=== PATIENT | male | born 1935 | race Caucasian/White ===

== ENCOUNTER 2018-01-27 16:48 | Emergency (ER) | payer MEDICARE ==
--- NOTE | 2018-01-27 17:50 | EDM.PDOC ---
ED HPI GENERAL MEDICAL PROBLEM - General Chief Complaint: Neuro Symptoms/Deficits Stated Complaint: POSSIBLE STROKE Time Seen by Provider: 01/27/18 17:10 Source of Information: Reports: Patient, Family History Limitations: Reports: No Limitations - History of Present Illness INITIAL COMMENTS - FREE TEXT/NARRATIVE: 82-year-old male was writing a letter about 5 hours ago when he started having difficulty with his right hand and then when he tried to stand he thought his right leg was somewhat numb and lacked coordination. Symptoms lasted 1 to 2 hours, they are completely gone now but he told his family and they insisted he be seen. No headache, visual disturbance, shortness of breath, chest pain, palpitations or other concerns. He is only on a blood pressure medication and an aspirin daily. He had left hip repair 3 months ago. He did not want to come to the hospital, is willing to do a head scan but does not want transfer or any further workup unless necessary. Onset: Gradual (Over the past 5 hours) Severity: Mild Associated Symptoms: Reports: No Other Symptoms Denies Pain Score (Numeric/FACES): 0 - Related Data Allergies Allergy/AdvReac Type Severity Reaction Status Date / Time Penicillins Allergy Cannot Verified 01/28/18 11:30 Remember Home Meds: Home Meds Aspirin 325 mg PO DAILY 01/27/18 [History] Triamterene/Hydrochlorothiazid [Triamterene-HCTZ 37.5-25 MG] 1 tab PO DAILY 10/04 [History] Past Medical History Cardiovascular History: Reports: Hypertension Musculoskeletal History: Reports: Fracture Other Musculoskeletal History: fx nose Psychiatric History: Reports: Depression Dermatologic History: Reports: Other (See Below) Other Dermatologic History: froze hands - Infectious Disease History Infectious Disease History: Reports: Chicken Pox, Measles, Mumps - Past Surgical History HEENT Surgical History: Reports: Tonsillectomy GI Surgical History: Reports: Hernia, Inguinal Musculoskeletal Surgical History: Reports: Hip Replacement Social & Family History - Tobacco Use Smoking Status *Q: Never Smoker Second Hand Smoke Exposure: No - Caffeine Use Caffeine Use: Reports: Coffee, Soda, Tea - Recreational Drug Use Recreational Drug Use: No ED ROS GENERAL - Review of Systems Review Of Systems: See Below Constitutional: Denies: Fever, Chills, Malaise HEENT: Denies: Vision Change Respiratory: Denies: Shortness of Breath, Cough Cardiovascular: Denies: Chest Pain GI/Abdominal: Denies: Abdominal Pain, Nausea, Vomiting : Reports: No Symptoms Musculoskeletal: Reports: Other (Still uses a cane to support the left hip) Neurological: Reports: Numbness (Had some numbness in the right leg earlier, resolved). Denies: Headache, Syncope ED EXAM, NEURO - Physical Exam Exam: See Below Exam Limited By: No Limitations General Appearance: Alert, No Apparent Distress Eye Exam: Bilateral Eye: Normal Inspection Head Exam: Atraumatic Neck: Normal Inspection. No: Carotid Bruit Respiratory/Chest: No Respiratory Distress, Lungs Clear Cardiovascular: Regular Rate, Rhythm GI/Abdominal: Soft, Non-Tender Neurological: Alert, CN II-XII Intact, No Motor/Sensory Deficits, Oriented x 3 Psychiatric: Normal Affect, Normal Mood Skin Exam: Warm, Dry Course - Vital Signs Last Recorded V/S: Last Vital Signs Temp 94.2 F L 01/27/18 17:10 Pulse 78 01/27/18 17:10 Resp 16 01/27/18 17:10 BP 181/112 H 01/27/18 17:10 Pulse Ox 95 01/27/18 17:10 - Re-Assessments/Exams Free Text/Narrative Re-Assessment/Exam: 01/27/18 17:50 Patient was willing to do a head CT for reassurance. 01/27/18 18:[address] showed some atrophy but no acute findings. This was relayed to the patient. He'll continue on his full dose aspirin, and return for further workup if symptoms recur. He understands that additional workup could be done at this time but he wants none done unless the symptoms recur. Blood pressure normalized by discharge, was 144/78 Departure - Departure Time of Disposition: 18:47 Disposition: Home, Self-Care 01 Condition: Good Clinical Impression: TIA (transient ischemic attack) Qualifiers: Transient cerebral ischemia type: unspecified Qualified Code(s): G45.9 - Transient cerebral ischemic attack, unspecified - Discharge Information Instructions: Transient Ischemic Attack, [id number] Referrals: PCP,None [Primary Care Provider] - Forms: ED Department Discharge Care Plan Goals: Continue your current medications including your full dose aspirin daily. Return any time if symptoms are recurring or you develop other concerns.
== END 2018-01-27 18:46 | disposition home or self-care (01) ==
LOC: JP.ED 16:48
DX: G45.9 Transient cerebral ischemic attack, unspecified (principal); I10 Essential (primary) hypertension; Z88.0 Allergy status to penicillin; Z79.82 Long term (current) use of aspirin
CPT/HCPCS: 70450; 99284-25

== ENCOUNTER 2018-01-28 11:07 | Emergency (ER) | payer MEDICARE ==
--- NOTE | 2018-01-28 12:37 | EDM.PDOC ---
ED HPI GENERAL MEDICAL PROBLEM - General Chief Complaint: Neuro Symptoms/Deficits Stated Complaint: NOT GETTING BETTER Time Seen by Provider: 01/28/18 12:37 Source of Information: Reports: Patient, Family History Limitations: Reports: No Limitations - History of Present Illness INITIAL COMMENTS - FREE TEXT/NARRATIVE: pt was seen yesterday and had a neg head scan. he had most of his symptoms clear yesterday. Today at 3 am he had recurrent weakness in the rt leg and difficulty cordinating his rt hand, He did nort have a headache. Onset: Other ( symptoms reoccurred today. ) Duration: Hour(s): Location: Reports: Upper Extremity, Right, Lower Extremity, Right Associated Symptoms: Reports: No Other Symptoms - Related Data Allergies Allergy/AdvReac Type Severity Reaction Status Date / Time Penicillins Allergy Cannot Verified 01/28/18 11:30 Remember Home Meds: Home Meds Aspirin 325 mg PO DAILY 01/27/18 [History] Triamterene/Hydrochlorothiazid [Triamterene-HCTZ 37.5-25 MG] 1 tab PO DAILY 10/04 [History] Past Medical History Cardiovascular History: Reports: Hypertension Musculoskeletal History: Reports: Fracture Other Musculoskeletal History: fx nose Psychiatric History: Reports: Depression Dermatologic History: Reports: Other (See Below) Other Dermatologic History: froze hands - Infectious Disease History Infectious Disease History: Reports: Chicken Pox, Measles, Mumps - Past Surgical History HEENT Surgical History: Reports: Tonsillectomy GI Surgical History: Reports: Hernia, Inguinal Musculoskeletal Surgical History: Reports: Hip Replacement Other Musculoskeletal Surgeries/Procedures:: L HIP REPLACEMENT Social & Family History - Tobacco Use Smoking Status *Q: Unknown Ever Smoked Second Hand Smoke Exposure: No - Caffeine Use Caffeine Use: Reports: Coffee, Soda, Tea - Recreational Drug Use Recreational Drug Use: No ED ROS GENERAL - Review of Systems Review Of Systems: See Below Constitutional: Reports: No Symptoms HEENT: Reports: No Symptoms Respiratory: Reports: No Symptoms Cardiovascular: Reports: No Symptoms, Other ( pt has no history of atrial fib. ) Endocrine: Reports: No Symptoms GI/Abdominal: Reports: No Symptoms : Reports: No Symptoms Skin: Reports: Other ( slight weaknes in the rt leg.) ED EXAM, NEURO - Physical Exam Exam: See Below Text/Narrative:: pt is alert and oriented pt who is able to give a good history. Exam Limited By: No Limitations General Appearance: Alert, No Apparent Distress, Other (pt was dragging his rt leg earlier today. pupils are equal and reactive. ) Ears: Normal TMs Nose: Normal Inspection Throat/Mouth: Normal Inspection Head Exam: Atraumatic Neck: Normal Inspection Respiratory/Chest: No Respiratory Distress Cardiovascular: Regular Rate, Rhythm GI/Abdominal: Soft, Non-Tender (Male) Exam: Deferred Rectal (Males) Exam: Deferred Neurological: Alert, Oriented x 3 Back Exam: Normal Inspection Extremities: Other ( slight weakness in the rt leg. ) Course - Vital Signs Last Recorded V/S: Last Vital Signs Temp 35.8 C 01/28/18 16:23 Pulse 67 01/28/18 16:23 Resp 15 01/28/18 16:23 BP 131/99 H 01/28/18 16:23 Pulse Ox 94 L 01/28/18 16:23 - Orders/Labs/Meds Orders: Active Orders 24 hr Category Date Time Status EKG Documentation Completion [RC] ASDIRECTED Care 01/28/18 12:39 Active EKG Documentation Completion [RC] ASDIRECTED Care 01/28/18 14:13 Inactive Ang Head wo Cont [MR] Stat Exams 01/28/18 12:36 Ordered Ang Neck w wo Cont [MR] Stat Exams 01/28/18 12:36 Ordered Brain wo Cont [MR] Stat Exams 01/28/18 12:36 Ordered UA W/MICROSCOPIC [URIN] Urgent Lab 01/28/18 12:40 Ordered Sodium Chloride 0.9% [Normal Saline] 1,000 ml Med 01/28/18 12:45 Active IV ASDIRECTED Sodium Chloride 0.9% [Saline Flush] Med 01/28/18 12:38 Active 10 ml FLUSH ASDIRECTED PRN Saline Lock Insert [OM.PC] Routine Oth 01/28/18 12:38 Ordered EKG 12 Lead [EK] Routine Ther 01/28/18 12:39 Ordered EKG 12 Lead [EK] Routine Ther 01/28/18 14:13 Stop Req Medication Orders Sodium Chloride (Normal Saline) 1,000 mls @ 100 mls/hr IV ASDIRECTED ARTURO Last Admin: 01/28/18 14:29 Dose: 100 mls/hr Sodium Chloride (Saline Flush) 10 ml FLUSH ASDIRECTED PRN PRN Reason: Keep Vein Open Labs: Laboratory Tests 01/28/18 01/28/18 01/28/18 Range/Units 12:40 12:40 12:40 WBC 6.3 (4.5-11.0) K/uL RBC 4.67 (4.30-5.90) M/uL Hgb 15.1 H (12.0-15.0) g/dL Hct 44.5 (40.0-54.0) % MCV 95 (80-98) fL MCH 32 H (27-31) pg MCHC 34 (32-36) % Plt Count 185 (150-400) K/uL Neut % (Auto) 57 (36-66) % Lymph % (Auto) 28 (24-44) % [place] % (Auto) 11 H (2-6) % Eos % (Auto) 4 (2-4) % Baso % (Auto) 1 (0-1) % Sodium 144 (140-148) mmol/L Potassium 3.9 (3.6-5.2) mmol/L Chloride 104 (100-108) mmol/L Carbon Dioxide 32 (21-32) mmol/L Anion Gap 8.3 (5.0-14.0) mmol/L BUN 18 (7-18) mg/dL Creatinine 0.9 (0.8-1.3) mg/dL Est Cr Clr Drug Dosing 65.52 mL/min Estimated GFR (MDRD) > 60 (>60) Glucose 75 (74-106) mg/dL Calcium 8.9 (8.5-10.1) mg/dL Total Bilirubin 0.6 (0.2-1.0) mg/dL AST 17 (15-37) U/L ALT 20 (12-78) U/L Alkaline Phosphatase 58 (46-116) U/L Total Protein 6.9 (6.4-8.2) g/dL Albumin 3.9 (3.4-5.0) g/dL Globulin 3.0 (2.3-3.5) g/dL Albumin/Globulin Ratio 1.3 (1.2-2.2) Urine Color Yellow Urine Appearance Clear Urine pH 8.0 (4.5-8.0) Ur Specific [place] 1.010 (1.008-1.030) Urine Protein Negative (NEGATIVE) mg/dL Urine Glucose (UA) Normal (NEGATIVE) mg/dL Urine Ketones Negative (NEGATIVE) mg/dL Urine Occult Blood Negative (NEGATIVE) Urine Nitrite Negative (NEGAITVE) Urine Bilirubin Negative (NEGATIVE) Urine Urobilinogen Normal (NORMAL) mg/dL Ur Leukocyte Esterase Negative (NEGATIVE) Urine RBC 0-5 (0-5) Urine WBC 0-5 (0-5) Ur Epithelial Cells Not seen Amorphous Sediment Not seen Urine Bacteria Not seen Urine Mucus Not seen Meds: Medications Generic Name Dose Route Start Last Admin Trade Name Freq PRN Reason Stop Dose Admin Sodium Chloride 1,000 mls @ 100 mls/hr 01/28/18 12:45 01/28/18 14:29 Normal Saline IV 100 mls/hr ASDIRECTED ARTURO Administration Sodium Chloride 10 ml 01/28/18 12:38 Saline Flush FLUSH ASDIRECTED PRN Keep Vein Open Discontinued Medications Generic Name Dose Route Start Last Admin Trade Name Freq PRN Reason Stop Dose Admin Aspirin 325 mg 01/28/18 14:58 01/28/18 15:39 Ecotrin PO 01/28/18 14:59 325 mg ONETIME ONE Administration Atorvastatin Calcium 40 mg 01/28/18 14:57 01/28/18 15:39 Lipitor PO 01/28/18 14:58 40 mg ONETIME ONE Administration Gadoteridol 20 ml 01/28/18 14:15 01/28/18 14:30 Prohance IV 01/28/18 14:30 20 ml . DIRECTED [facility] Administration - Re-Assessments/Exams Free Text/Narrative Re-Assessment/Exam: 01/28/18 15:17 pt had a normal ekg. His labs looked good. He had a MRI of the brain and a MRA of th head and neck. The vessels looked open. He has a small lucunar infarct. He was offer a ftransfer to [place] to consult with a neurologist and he did not want to go. He would not be a canidate for a cerebral angiogram with a normal MRA of the head and neck. Departure - Departure Time of Disposition: 16:46 Disposition: Home, Self-Care 01 Condition: Fair Clinical Impression: Cerebral infarct - Discharge Information Referrals: Morris Mills, [employer] [Primary Care Provider] - Forms: ED Department Discharge Care Plan Goals: appt with Morris Johnson Wed or wednesday, lipitor 40mg daily asa 81 mg daily, rtc if problems. recheck bp if still running on the high side may need to be medicated . __MRI vascular studies were clear--small lucncar infarct - My Orders Last 24 Hours: My Active Orders 01/28/18 12:36 Ang Head wo Cont [MR] Stat Ang Neck w wo Cont [MR] Stat Brain wo Cont [MR] Stat 01/28/18 12:38 Sodium Chloride 0.9% [Saline Flush] 10 ml FLUSH ASDIRECTED PRN Saline Lock Insert [OM.PC] Routine 01/28/18 12:39 EKG Documentation Completion [RC] ASDIRECTED EKG 12 Lead [EK] Routine 01/28/18 12:40 UA W/MICROSCOPIC [URIN] Urgent 01/28/18 12:45 Sodium Chloride 0.9% [Normal Saline] 1,000 ml IV ASDIRECTED 01/28/18 14:13 EKG Documentation Completion [RC] ASDIRECTED EKG 12 Lead [EK] Routine - Assessment/Plan Last 24 Hours: My Active Orders 01/28/18 12:36 Ang Head wo Cont [MR] Stat Ang Neck w wo Cont [MR] Stat Brain wo Cont [MR] Stat 01/28/18 12:38 Sodium Chloride 0.9% [Saline Flush] 10 ml FLUSH ASDIRECTED PRN Saline Lock Insert [OM.PC] Routine 01/28/18 12:39 EKG Documentation Completion [RC] ASDIRECTED EKG 12 Lead [EK] Routine 01/28/18 12:40 UA W/MICROSCOPIC [URIN] Urgent 01/28/18 12:45 Sodium Chloride 0.9% [Normal Saline] 1,000 ml IV ASDIRECTED 01/28/18 14:13 EKG Documentation Completion [RC] ASDIRECTED EKG 12 Lead [EK] Routine
[2018-01-28] MEDS ORDERED: Sodium Chloride 0.9% 10 ML Syringe FLUSH PRN (12:38)
[2018-01-28] MEDS ORDERED: Sodium Chloride 0.9% 1,000 ML IV SCH (12:45)
[2018-01-28] MEDS ORDERED: Gadoteridol 279.3 MG/ML 20 ML SDV IV SCH (14:15)
[2018-01-28] MEDS ORDERED: atorvaSTATin 20 MG Tab PO ONE (14:57)
[2018-01-28] MEDS ORDERED: Aspirin 325 MG Tab.EC PO ONE (14:58)
--- NOTE | 2018-02-01 12:19 | MR ---
MRA head. Findings: The vertebral arteries are patent. Basilar artery is patent. Posterior cerebral arteries ar e patent. The right posterior cerebral artery originates from the anterior circulation, normal varian t. Middle cerebral arteries are patent. The right anterior cerebral artery originates from the left A 1 segment, a normal variant intact. Attenuation of the right anterior cerebral artery proximally whic h may be artifactual or narrowing. Distally the artery appears patent. Impression: 1. Patent vasculature as above. 2. Anatomic variant with the right anterior cerebral artery originating from the left A1 segment. Att enuation of the proximal right anterior cerebral artery which may be artifactual versus narrowing.
--- NOTE | 2018-02-01 12:19 | MR ---
MR brain without contrast. Indication: Possible stroke. Findings: There is an 11 mm focus of restricted diffusion with increased DWI signal and mildly low AD C map signal. It is located within the left goyal radiata and extends to the border of the left thal amus and left basal ganglia. Signal changes are noted on FLAIR at this location as well. Ventricles a ppear enlarged which may be due to centralized atrophy. There is moderate to advanced global atrophy. Mild-moderate high T2 signal foci within the deep white matter and mild high T2 signal within the pe riventricular white matter can indicate chronic small vessel ischemic disease. Cerebral vascular flow voids are patent. Trace fluid right mastoid air cell. Impression: 1. Subacute or acute lacunar infarct measuring 11 mm on the left within the goyal radiata bordering and/ or involving the left basal ganglia/left thalamus.
--- NOTE | 2018-02-01 12:19 | MR ---
MRA neck with contrast. Findings: Vertebral arteries are patent. The common carotid arteries are patent. The internal carotid arteries are widely patent. There is tortuosity of both internal carotid arteries. Internal carotid arteries are patent to the skull base. External carotid arteries are patent. Impression: 1. Patent neck vasculature.
== END 2018-01-28 17:02 | disposition home or self-care (01) ==
LOC: JP.ED 11:07
DX: I63.9 Cerebral infarction, unspecified (principal); I10 Essential (primary) hypertension; Z88.0 Allergy status to penicillin; Z79.82 Long term (current) use of aspirin; Z79.899 Other long term (current) drug therapy
CPT/HCPCS: 36415; 70544; 70549; 70551; 80053; 81001; 85025; 93005; 96360; 99284; A9270; A9576; J7040

== ENCOUNTER 2022-03-24 09:14 | Emergency (ER) | payer MEDICARE | END 2022-03-24 16:33 | LOC: JP.ED 09:14 | DX: S42.294A Other nondisplaced fracture of upper end of right humerus, initial encounter for closed fracture (principal); I10 Essential (primary) hypertension; Z79.899 Other long term (current) drug therapy; Z88.0 Allergy status to penicillin; W19.XXXA Unspecified fall, initial encounter | CPT/HCPCS: 73030-26-RT; 73030-RT; 99284-25 ==